=== PATIENT | female | born 1995 | race Caucasian/White ===

== ENCOUNTER 2021-01-17 20:43 | Emergency (ER) | payer BC ==
[~2021-01-17] VITALS: Ht 167.6 cm; Wt 63.5 kg
[2021-01-17 21:47] LABS: ABSOLUTE NEUTROPHILS 12.7 thou/uL (1.4-8.2); BASOPHILS 0.4 % (0.0-2.0); EOSINOPHILS 0.7 % (0.0-3.0); HEMATOCRIT 36.6 % (37.0-47.0); HEMOGLOBIN 12.1 gm/dL (12.0-15.0); LYMPHOCYTES 11.2 % (24.0-44.0); MCH 29.8 pg (26.0-34.0); MCV 90.4 fL (80.0-100.0); PLATELET COUNT 322 thou/uL (150-400); POLYS 82.7 % (36.0-66.0); RBC 4.05 mil/uL (4.20-5.00); RDW 13.1 % (10.5-14.5); WBC 15.3 thou/uL (4.0-11.0)
[2021-01-17 22:01] LABS: CALCIUM 8.7 mg/dL (8.5-10.1); CREATININE 0.8 mg/dL (0.6-1.0); POTASSIUM 3.5 mmol/L (3.5-5.1)
[2021-01-17 22:08] LABS: ALBUMIN 3.9 g/dL (3.4-5.0); TOTAL BILIRUBIN 0.4 mg/dL (0.2-1.0); TOTAL PROTEIN 7.8 g/dL (6.4-8.2)
[2021-01-17 23:37] LABS: URINE BILIRUBIN NEGATIVE (Negative); URINE BLOOD TRACE (Negative); URINE CLARITY CLEAR; URINE COLOR YELLOW; URINE GLUCOSE-RANDOM* NEGATIVE (Negative); URINE KETONES 3+ (Negative); URINE LEUKOCYTES-REFLEX NEGATIVE (Negative); URINE NITRITE-REFLEX NEGATIVE (Negative); URINE PROTEIN (DIPSTICK) TRACE (Negative); URINE SPECIFIC GRAVITY >= 1.030 (1.005-1.035); URINE UROBILINOGEN 0.2 E.U./dl (0.2-1.0)
[2021-01-18 02:13] LABS: URINE BILIRUBIN NEGATIVE (Negative); URINE BLOOD NEGATIVE (Negative); URINE CLARITY CLEAR; URINE COLOR YELLOW; URINE GLUCOSE-RANDOM* 2+ (Negative); URINE KETONES NEGATIVE (Negative); URINE LEUKOCYTES-REFLEX NEGATIVE (Negative); URINE NITRITE-REFLEX NEGATIVE (Negative); URINE PROTEIN (DIPSTICK) NEGATIVE (Negative); URINE UROBILINOGEN 0.2 E.U./dl (0.2-1.0)
[2021-01-18 02:17] VITALS: BP 114/55
[2021-01-18] MEDS ORDERED: ZOFRAN ODT4 MG PO (02:19)
== END 2021-01-18 02:20 | disposition home or self-care (01) ==
LOC: ER 20:43
PROVIDERS: Emergency Medicine
DX: O21.0 Mild hyperemesis gravidarum (principal); Z3A.01 Less than 8 weeks gestation of pregnancy

== ENCOUNTER 2021-02-01 11:46 | Emergency (ER) | payer BC ==
[~2021-02-01] VITALS: Ht 167.6 cm; Wt 66.7 kg
[~2021-02-01 11:46] MED LIST: ZOFRAN ODT4 MG PO
[2021-02-01 12:50] LABS: ABSOLUTE NEUTROPHILS 11.9 thou/uL (1.4-8.2); BASOPHILS 0.4 % (0.0-2.0); EOSINOPHILS 0.1 % (0.0-3.0); HEMATOCRIT 34.7 % (37.0-47.0); HEMOGLOBIN 11.9 gm/dL (12.0-15.0); LYMPHOCYTES 6.8 % (24.0-44.0); MCH 30.7 pg (26.0-34.0); MCHC 34.4 g/dL (28.0-37.0); MCV 89.1 fL (80.0-100.0); MONOCYTES 2.7 % (1.0-8.0); PLATELET COUNT 258 thou/uL (150-400); RBC 3.89 mil/uL (4.20-5.00); RDW 13.2 % (10.5-14.5); WBC 13.2 thou/uL (4.0-11.0)
[2021-02-01 12:57] LABS: CALCIUM 7.8 mg/dL (8.5-10.1); CREATININE 0.5 mg/dL (0.6-1.0); POTASSIUM 3.9 mmol/L (3.5-5.1)
[2021-02-01 13:04] LABS: ALBUMIN 3.4 g/dL (3.4-5.0); TOTAL BILIRUBIN 0.4 mg/dL (0.2-1.0); TOTAL PROTEIN 6.8 g/dL (6.4-8.2)
[2021-02-01] MEDS ORDERED: ONDANSETRON HCL4 M2 PO (13:16)
[2021-02-01 13:51] VITALS: BP 107/64
== END 2021-02-01 13:52 | disposition home or self-care (01) ==
LOC: ER 11:46
PROVIDERS: Emergency Medicine
DX: O21.8 Other vomiting complicating pregnancy (principal); Z79.899 Other long term (current) drug therapy; Z3A.08 8 weeks gestation of pregnancy